=== PATIENT | female | born 1995 | race Caucasian/White ===

== ENCOUNTER 2016-10-13 10:38 | Emergency (ER) | payer OTHER ==
[~2016-10-13] VITALS: Ht 162.6 cm; Wt 68.2 kg
[2016-10-13 10:40] VITALS: BP 143/85; TEMP 98.9
[2016-10-13] MEDS ORDERED: LUTERA 0.02 MG-1 TAB PO (10:43)
[2016-10-13] MEDS ORDERED: FLEXERIL 1010 MG/TAB PO (11:28)
[2016-10-13] MEDS ORDERED: MOTRIN 800800 MG/TAB PO (11:30)
[2016-10-13 11:57] VITALS: PULSE 85
== END 2016-10-13 11:58 | disposition home or self-care (01) ==
LOC: COL.ER 10:38
DX: S16.1XXA Strain of muscle, fascia and tendon at neck level, initial encounter (principal); V43.62XA Car passenger injured in collision with other type car in traffic accident, initial encounter; Y92.410 Unspecified street and highway as the place of occurrence of the external cause